=== PATIENT | female | born 1985 | race Native Hawaiian/Other Pacific Islander ===

== ENCOUNTER 2019-07-19 12:30 | Outpatient (CLI) | payer OTHER ==
[~2019-07-19 12:30] MED LIST: ALPR0.5T24 PO; ATEN25TA21 PO; DULO30CA PO; HYDR-2748 PO; IMITREX100 MG PO; NEURONTIN800 MG PO; PAXIL10 MG PO; PAXIL20 MG PO; PAXIL30 MG PO; PRILOSEC40 MG OR; PROPRANOLOL10 MG OR; TIZA4TAB5 PO
[2019-07-19 13:03] LABS: PLATELET COUNT 309 K/uL (152-353)
[2019-07-19 13:23] LABS: POTASSIUM 4.3 mmol/L (3.6-5.2)
== END 2019-07-19 23:23 | disposition home or self-care (01) ==
LOC: LABW 12:30
PROVIDERS: Nurse Practitioner
DX: F33.0 Major depressive disorder, recurrent, mild (principal); D64.9 Anemia, unspecified; E04.2 Nontoxic multinodular goiter; D51.9 Vitamin B12 deficiency anemia, unspecified
CPT/HCPCS: 36415; 80053; 82607; 82746; 83540; 84436; 84439; 84443; 84480; 85027